=== PATIENT | female | born 1940 | race Caucasian/White ===

== ENCOUNTER 2017-09-15 03:20 | Emergency (ER) | payer MEDICARE, OTHER ==
[2017-09-15] MEDS ORDERED: LORazepam 1 MG Tab PO ONE (03:44)
[2017-09-15] MEDS ORDERED: ALPRAZolam 0.5 MG Tab PO ONE (04:02)
[2017-09-15 05:13] VITALS: BP 175/82
--- NOTE | 2017-09-15 05:14 | ER ---
DATE SEEN: 09/15/2017 CHIEF COMPLAINT: Anxiety. HISTORY OF PRESENT ILLNESS: This is a 77-year-old female complaining of feeling afraid, nervous, and anxious. This is associated with a queasy stomach and nausea. Denies diarrhea or abdominal pain. Denies shortness of breath or chest pain. She has a history of anxiety, treated with Prozac and Vistaril. Her came home after stroke and being in the nursing for 100 days and she is worried about taking care of him. REVIEW OF SYSTEMS: All other systems negative. PAST MEDICAL HISTORY: Please see the electronic record. PHYSICAL EXAMINATION: GENERAL: She is anxious. VITAL SIGNS: Blood pressure is 175 systolic. She is afebrile. ENT: Negative. CHEST: Clear. CARDIOVASCULAR: Normal. MENTAL STATUS: Anxiety, fidgety, and tense. IMPRESSION: Anxiety, situational. PLAN: 1 mg lorazepam that helps, sent home with Xanax 0.5 mg p.o. t.i.d. p.r.n. FOLLOWUP: Followup in the office with Dr. Baptiste as required. /[id number] SHIRA/FLORESITA
== END 2017-09-15 04:05 | disposition home or self-care (01) ==
LOC: FB.ED 03:20
DX: F41.8 Other specified anxiety disorders (principal)
CPT/HCPCS: 99283; A9270